=== PATIENT | female | born 1970 | race Two or more races ===

== ENCOUNTER 2019-09-30 11:48 | Emergency (ER) | payer MEDICAID ==
[~2019-09-30] VITALS: Ht 157.5 cm; Wt 52.0 kg
[2019-09-30] MEDS ORDERED: KETOROLAC 60MG/2ML VIAL IM ONE (13:00)
[2019-09-30 13:44] VITALS: BP 158/83
== END 2019-09-30 13:50 | disposition home or self-care (01) ==
LOC: ER 12:34
DX: M54.12 Radiculopathy, cervical region (principal); R62.50 Unspecified lack of expected normal physiological development in childhood
CPT/HCPCS: 81025; 96372; 99283; J1885

== ENCOUNTER 2019-10-16 21:34 | Emergency (ER) | payer MEDICAID ==
[~2019-10-16] VITALS: Ht 154.9 cm; Wt 51.0 kg
[2019-10-17 01:18] LABS: CLARITY URINE CLOUDY (CLEAR); COLOR URINE YELLOW (YELLOW); KETONES URINE NEGATIVE (NEGATIVE); LEUKOCYTE ESTERASE URINE 1+ (NEGATIVE); NITRITE URINE POSITIVE (NEGATIVE); OCCULT BLOOD URINE NEGATIVE (NEGATIVE); PROTEIN URINE NEGATIVE (NEGATIVE); SPECIFIC GRAVITY URINE 1.029 (1.005-1.030); UROBILINOGEN URINE 0.2 E.U./dL (0.2-1.0)
[2019-10-17 02:39] LABS: BASOPHILS % 1.4 % (0.0-2.0); EOSINOPHILS % 1.3 % (0.0-5.0); HEMATOCRIT. 38.1 % (36.0-48.0); LYMPHOCYTES % 44.6 % (20.0-50.0); MEAN CORPUSCULAR HEMOGLOBIN 30.2 pg (28.0-32.0); MEAN PLATELET VOLUME 9.9 fl (7.4-10.4); MONOCYTES % 7.8 % (2.0-8.0); NEUTROPHILS % 44.9 % (40.0-76.0); PLATELET 205 x1000/uL (130-400); RED BLOOD CELL COUNT 4.29 mill/uL (4.2-5.4); RED CELL DISTRIBUTION WIDTH 13.4 % (11.6-14.6)
[2019-10-17 02:45] LABS: CHLORIDE 109 mEq/L (98-107); HCG SCREEN NEGATIVE
[2019-10-17 04:42] VITALS: BP 108/72
== END 2019-10-17 04:44 | disposition home or self-care (01) ==
LOC: ER 21:34
DX: K29.70 Gastritis, unspecified, without bleeding (principal); N39.0 Urinary tract infection, site not specified; R10.9 Unspecified abdominal pain
CPT/HCPCS: 36415; 76705; 80053; 81003; 83690; 84703; 85025; 87077; 87086; 87186; 99284; Z7610

== ENCOUNTER 2019-11-09 17:27 | Emergency (ER) | payer MEDICAID ==
[~2019-11-09] VITALS: Ht 165.1 cm; Wt 57.0 kg
[2019-11-09 17:35] VITALS: BP 111/69
[2019-11-09] MEDS ORDERED: LEVETIRACETAM 500MG PREMIX 100 ML IV ONE (18:30)
[2019-11-09 19:20] LABS: BASOPHILS % 0.8 % (0.0-2.0); EOSINOPHILS % 4.1 % (0.0-5.0); HEMATOCRIT. 38.8 % (36.0-48.0); HEMOGLOBIN. 13.2 g/dL (12.0-16.0); LYMPHOCYTES % 48.8 % (20.0-50.0); MEAN CORPUSCULAR HEMOGLOBIN 30.7 pg (28.0-32.0); MEAN CORPUSCULAR VOLUME 90.3 fL (81.0-99.0); MEAN PLATELET VOLUME 10.6 fl (7.4-10.4); MONOCYTES % 6.2 % (2.0-8.0); NEUTROPHILS % 40.1 % (40.0-76.0); PLATELET 188 x1000/uL (130-400); RED CELL DISTRIBUTION WIDTH 13.9 % (11.6-14.6)
[2019-11-09 19:27] LABS: CHLORIDE 109 mEq/L (98-107)
[2019-11-09 19:33] LABS: CLARITY URINE CLEAR (CLEAR); COLOR URINE YELLOW (YELLOW); KETONES URINE NEGATIVE (NEGATIVE); LEUKOCYTE ESTERASE URINE NEGATIVE (NEGATIVE); NITRITE URINE NEGATIVE (NEGATIVE); OCCULT BLOOD URINE NEGATIVE (NEGATIVE); PH URINE 5.5 (4.5-8.0); PROTEIN URINE NEGATIVE (NEGATIVE); SPECIFIC GRAVITY URINE 1.033 (1.005-1.030); UROBILINOGEN URINE 0.2 E.U./dL (0.2-1.0)
== END 2019-11-09 21:35 | disposition home or self-care (01) ==
LOC: ER 17:27
DX: R56.9 Unspecified convulsions (principal); J45.909 Unspecified asthma, uncomplicated; Z88.6 Allergy status to analgesic agent; Z88.2 Allergy status to sulfonamides
CPT/HCPCS: 36415; 80053; 81003; 81025; 85025; 96365; 96366; 99283; J1953

== ENCOUNTER 2022-08-31 13:18 | Emergency (ER) | payer MEDICAID ==
[~2022-08-31] VITALS: Ht 162.6 cm; Wt 55.0 kg
[2022-08-31 13:26] VITALS: BP 108/63
[2022-08-31] MEDS ORDERED: CEPH500C2 MT (18:36)
[2022-08-31] MEDS ORDERED: TOPUD PO ×3 (18:37→18:38)
[2022-08-31] MEDS ORDERED: BO1 TP (18:41)
[2022-08-31] MEDS: BACITRACIN ZINC OINT UDPKT TOP ONE (18:52)
== END 2022-08-31 18:56 | disposition home or self-care (01) ==
LOC: ER 13:18
DX: S00.83XA Contusion of other part of head, initial encounter (principal); J45.909 Unspecified asthma, uncomplicated; Z88.6 Allergy status to analgesic agent; Z88.8 Allergy status to other drugs, medicaments and biological substances; Z98.890 Other specified postprocedural states; Z86.59 Personal history of other mental and behavioral disorders; X58.XXXA Exposure to other specified factors, initial encounter; Y93.89 Activity, other specified; Y92.89 Other specified places as the place of occurrence of the external cause; Y99.8 Other external cause status
CPT/HCPCS: 70486; 99284